=== PATIENT | male | born 1950 | race Two or more races ===

== ENCOUNTER 2019-10-18 10:35 | Outpatient (CLI) | payer OTHER | END 2019-10-18 10:40 | disposition home or self-care (01) | LOC: LAB 10:35 | DX: R97.20 Elevated prostate specific antigen [PSA] (principal) ==

== ENCOUNTER 2022-03-08 09:44 | Outpatient (CLI) | payer OTHER | END 2022-03-08 09:45 | disposition home or self-care (01) | LOC: LAB 09:44 | PROVIDERS: ATTEND Urology | DX: R97.20 Elevated prostate specific antigen [PSA] (principal) ==

== ENCOUNTER 2022-04-02 07:14 | Outpatient (CLI) | payer OTHER | END 2022-04-02 07:21 | disposition home or self-care (01) | LOC: SONOGRAMA 07:14 | PROVIDERS: ATTEND Urology | DX: R97.20 Elevated prostate specific antigen [PSA] (principal) ==

== ENCOUNTER 2022-08-30 07:30 | Outpatient (CLI) | payer OTHER | END 2022-08-30 07:42 | disposition home or self-care (01) | LOC: RAD 07:30 | PROVIDERS: ATTEND General Practice | DX: J44.9 Chronic obstructive pulmonary disease, unspecified (principal) ==

== ENCOUNTER 2022-09-17 10:00 | Inpatient (IN) | payer OTHER ==
[2022-09-17] MEDS ORDERED: COZAAR100 MG PO (11:05)
[2022-09-17] MEDS ORDERED: LIPITOR20 MG PO (11:05)
[2022-09-17] MEDS ORDERED: LIPITOR (11:06)
[2022-09-22] MEDS ORDERED: METOPROLOL SUC100 MG (13:05)
[2022-09-22] MEDS ORDERED: ATORVASTATIN CA40 MG (13:05)
[2022-09-25] MEDS ORDERED: HYOSCYAMINE0.125 M1 SL (13:48)
[2022-09-25] MEDS ORDERED: PERCOCET 5-3251 EACH PO (13:50)
== END 2022-09-25 14:57 | disposition home or self-care (01) | DRG 331 ==
LOC: O/R 09-22 06:00 → SURH 09-22 07:00 → SURG 09-22 14:59
PROVIDERS: ADMIT Surgery; ATTEND Surgery
PROC: 0DBP4ZZ Excision of Rectum, Percutaneous Endoscopic Approach (ICD-10-PCS; 2022-09-22)
PROC: 07BB4ZZ Excision of Mesenteric Lymphatic, Percutaneous Endoscopic Approach (ICD-10-PCS; 2022-09-22)
PROC: 0DTN4ZZ Resection of Sigmoid Colon, Percutaneous Endoscopic Approach (ICD-10-PCS; principal; 2022-09-22 07:00)
DX: D12.5 Benign neoplasm of sigmoid colon (principal); D12.2 Benign neoplasm of ascending colon; K57.30 Diverticulosis of large intestine without perforation or abscess without bleeding; R59.0 Localized enlarged lymph nodes; I11.9 Hypertensive heart disease without heart failure; Z20.822 Contact with and (suspected) exposure to COVID-19

== ENCOUNTER 2022-09-21 08:48 | Outpatient (CLI) | payer OTHER ==
[~2022-09-21 08:48] MED LIST: COZAAR100 MG PO; LIPITOR; LIPITOR20 MG PO
== END 2022-09-21 11:26 | disposition home or self-care (01) ==
LOC: LAB 08:48
PROVIDERS: ATTEND Surgery
DX: Z20.822 Contact with and (suspected) exposure to COVID-19 (principal)

== ENCOUNTER 2023-02-09 07:07 | Outpatient (CLI) | payer OTHER ==
[~2023-02-09 07:07] MED LIST changes: +ATORVASTATIN CA40 MG; +HYOSCYAMINE0.125 M1 SL; +METOPROLOL SUC100 MG; +PERCOCET 5-3251 EACH PO
== END 2023-02-09 07:08 | disposition home or self-care (01) ==
LOC: NUCLEAR 07:07
PROVIDERS: ATTEND General Practice
DX: C14.0 Malignant neoplasm of pharynx, unspecified (principal); C34.2 Malignant neoplasm of middle lobe, bronchus or lung
CPT/HCPCS: 78815; A9552

== ENCOUNTER 2023-06-10 06:47 | Emergency (ER) | payer OTHER ==
[~2023-06-10] VITALS: Ht 167.6 cm; Wt 68.0 kg
[2023-06-10 09:57] LABS: HEMATOCRIT 31.7 % (39.0-48.0); HEMOGLOBIN 10.8 g/dL (13-16.00); MEAN CELL VOLUME 94.9 fL (80.0-100.00); MEAN CORPUSCULAR HEMOGLOBIN 32.4 pg (27.00-32.0); MEAN CORPUSCULAR HGB CONC 34.2 g/dl (32.0-36.0); PLATELET COUNT 226 K/uL (150-450); RED BLOOD COUNT 3.34 M/uL (4.00-6.00); RED CELL DISTRIBUTION WIDTH 13.4 % (11.5-14.5)
[2023-06-10 09:59] LABS: URINE APPEARANCE Clear; URINE BILIRRUBIN Negative (NEGATIVE); URINE BLOOD Negative; URINE COLOR Yellow; URINE GLUCOSE Negative (NEGATIVE); URINE LEUKOCYTE Negative; URINE NITRATE Negative; URINE PROTEIN 30 (NEGATIVE); URINE UROBILINOGEN 0.2 E.U./dl
[2023-06-10 10:03] LABS: URINE BACTERIA 42.8 uL (0.0-1933); URINE EPITHELIAL CELLS 18.2 uL (0.0-38.8); URINE RBC 10.6 uL (0.0-20.8); URINE WBC 4.9 uL (0.0-23.2)
[2023-06-10 10:36] LABS: ALBUMIN 3.1 gm/dL (3.4-5.0); BILIRUBIN TOTAL 0.54 mg/dL (0.3-1.2); BILIRUBIN,CONJUGATED 0.19 mg/dL (0.0-0.2); BILIRUBIN,UNCONJUGATED 0.35 mg/dL (0.0-0.6); CALCIUM 8.5 mg/dL (8.5-10.1); CREATININE SERUM 3.08 mg/dL (0.70-1.30); GFR 20.05; POTASSIUM 3.88 mEq/L (3.5-5.1); TOTAL PROTEIN 7.4 gm/dL (6.4-8.2)
[2023-06-10 11:27] LABS: ABG PO2 97.7 mmHg (80-100); ABG pCO2 26.7 mmHg (35-45); BASE EXCESS -6.9 mmol/l; BICARBONATE 16.1 mmol/l (23-25); SaO2 97.4 %
[2023-06-10 11:28] LABS: allen test SATISFACTORY; o2 21 %; puncture site RADIAL RIGHT
== END 2023-06-10 12:02 | disposition home or self-care (01) ==
LOC: ER 06:47
PROVIDERS: General Practice
DX: J40 Bronchitis, not specified as acute or chronic (principal); I10 Essential (primary) hypertension; Z20.822 Contact with and (suspected) exposure to COVID-19; D02.20 Carcinoma in situ of unspecified bronchus and lung

== ENCOUNTER 2023-07-11 10:57 | Outpatient (CLI) | payer OTHER | END 2023-07-11 11:00 | disposition home or self-care (01) | LOC: SONOGRAMA 10:57 | PROVIDERS: ATTEND Pathology Anatomic Pathology & Clinical Pathology | DX: D17.0 Benign lipomatous neoplasm of skin and subcutaneous tissue of head, face and neck (principal) ==

== ENCOUNTER 2023-08-18 07:46 | Outpatient (CLI) | payer OTHER | END 2023-08-18 07:59 | disposition home or self-care (01) | LOC: NUCLEAR 07:46 | PROVIDERS: ATTEND Internal Medicine Hematology & Oncology | DX: C34.2 Malignant neoplasm of middle lobe, bronchus or lung (principal) | CPT/HCPCS: 78815; A9552 ==

== ENCOUNTER 2023-10-19 09:08 | Outpatient (CLI) | payer OTHER | END 2023-10-19 09:16 | disposition home or self-care (01) | LOC: SONOGRAMA 09:08 | PROVIDERS: ATTEND Otolaryngology | DX: D11.0 Benign neoplasm of parotid gland (principal) ==

== ENCOUNTER 2024-04-30 05:30 | Day surgery (SDC) | payer OTHER ==
[2024-04-24 10:02] VITALS: BP 116/67
[2024-04-24 10:28] LABS: HEMATOCRIT 35.4 % (39.0-48.0); HEMOGLOBIN 11.7 g/dL (13-16.00); MEAN CELL VOLUME 97.6 fL (80.0-100.00); MEAN CORPUSCULAR HEMOGLOBIN 32.2 pg (27.00-32.0); PLATELET COUNT 337 K/uL (150-450); RED BLOOD COUNT 3.63 M/uL (4.00-6.00); RED CELL DISTRIBUTION WIDTH 13.5 % (11.5-14.5)
[2024-04-24 10:29] LABS: PH,URINE 5.5 (5.0-8.0); URINE APPEARANCE Clear; URINE BILIRRUBIN Negative (NEGATIVE); URINE BLOOD Negative; URINE COLOR Yellow; URINE GLUCOSE Negative (NEGATIVE); URINE KETONE Negative (NEGATIVE); URINE LEUKOCYTE Negative; URINE NITRATE Negative; URINE PROTEIN Negative (NEGATIVE); URINE UROBILINOGEN 0.2 E.U./dl
[2024-04-24 10:32] LABS: URINE BACTERIA 15.1 uL (0.0-1933); URINE RBC 3.8 uL (0.0-20.8); URINE WBC 2.9 uL (0.0-23.2)
[2024-04-24 10:35] LABS: URINE CAST 0.45 uL (0.0-1.40)
[2024-04-24 11:16] LABS: ALBUMIN 3.5 gm/dL (3.4-5.0); BILIRUBIN TOTAL 0.58 mg/dL (0.3-1.2); CALCIUM 9.8 mg/dL (8.5-10.1); CREATININE SERUM 1.26 mg/dL (0.70-1.30); GFR 56.1; GLOBULINA 4.1 G/DL (2.4-3.5); POTASSIUM 5.76 mEq/L (3.5-5.1); TOTAL PROTEIN 7.6 gm/dL (6.4-8.2)
[2024-04-24 11:25] LABS: INR 0.96; PARTIAL THROMBOPLASTIN TIME 27.1 SECONDS (22.0-34.0); PROTHROMBIN TIME 10.5 SECONDS (9.0-11.5)
[~2024-04-30] VITALS: Ht 167.6 cm; Wt 72.6 kg
[~2024-04-30 05:30] MED LIST changes: +CALTRATE 600 +1 EAC1 PO; +[UNRECOGNIZED DRUG - OTHER] PO
[2024-04-30] MEDS ORDERED: DEXAMETHASONE SODIUM PHOSPHATE 4 MG/ML VIAL IV ONE (11:15)
[2024-04-30] MEDS ORDERED: MORPHINE SULFATE 4 MG/ML VIAL IV ONE ×2 (12:30→13:00)
== END 2024-04-30 15:00 | disposition home or self-care (01) ==
LOC: CIR.AMB 05:30
PROVIDERS: ATTEND Otolaryngology
DX: C49.9 Malignant neoplasm of connective and soft tissue, unspecified (principal); D11.7 Benign neoplasm of other major salivary glands; D23.4 Other benign neoplasm of skin of scalp and neck; D48.5 Neoplasm of uncertain behavior of skin; D17.1 Benign lipomatous neoplasm of skin and subcutaneous tissue of trunk; L72.3 Sebaceous cyst; Z88.0 Allergy status to penicillin; I10 Essential (primary) hypertension; E78.5 Hyperlipidemia, unspecified; J44.9 Chronic obstructive pulmonary disease, unspecified

== ENCOUNTER 2024-10-01 07:26 | Outpatient (CLI) | payer OTHER | END 2024-10-01 07:27 | disposition home or self-care (01) | LOC: NUCLEAR 07:26 | PROVIDERS: ATTEND Radiology Radiation Oncology | DX: C61 Malignant neoplasm of prostate (principal) | CPT/HCPCS: 78815; A9552 ==

== ENCOUNTER 2025-03-15 07:10 | Outpatient (CLI) | payer OTHER | END 2025-03-15 07:11 | disposition home or self-care (01) | LOC: NUCLEAR 07:10 | PROVIDERS: ATTEND Internal Medicine Hematology & Oncology | DX: C34.2 Malignant neoplasm of middle lobe, bronchus or lung (principal); C61 Malignant neoplasm of prostate; C77.0 Secondary and unspecified malignant neoplasm of lymph nodes of head, face and neck; C77.1 Secondary and unspecified malignant neoplasm of intrathoracic lymph nodes | CPT/HCPCS: 78815; A9552 ==

== ENCOUNTER 2025-04-18 07:06 | Outpatient (CLI) | payer OTHER | END 2025-04-18 07:10 | disposition home or self-care (01) | LOC: RAD 07:06 | PROVIDERS: ATTEND General Practice | DX: M15.9 Polyosteoarthritis, unspecified (principal); J44.9 Chronic obstructive pulmonary disease, unspecified ==

== ENCOUNTER 2025-05-01 07:40 | Outpatient (CLI) | payer OTHER | END 2025-05-01 07:46 | disposition home or self-care (01) | LOC: RAD 07:40 | PROVIDERS: ATTEND Internal Medicine Hematology & Oncology | DX: R51.9 Headache, unspecified (principal); I10 Essential (primary) hypertension; C61 Malignant neoplasm of prostate; C34.2 Malignant neoplasm of middle lobe, bronchus or lung ==

== ENCOUNTER 2025-05-08 09:57 | Emergency (ER) | payer OTHER ==
[~2025-05-08] VITALS: Ht 167.6 cm; Wt 68.0 kg
[2025-05-08 10:54] VITALS: O2SAT 98
[2025-05-08] MEDS ORDERED: DEXAMETHASONE SODIUM PHOSPHATE 4 MG/ML VIAL IV ONE (11:15)
[2025-05-08] MEDS ORDERED: 0.9 % SODIUM CHLORIDE 1,000 ML IV ONE (11:15)
[2025-05-08] MEDS ORDERED: MORPHINE SULFATE 2 MG/ML SYRINGE IV ONE ×2 (11:15→16:15)
[2025-05-08] MEDS ORDERED: DEXAMETHASONE SODIUM PHOSPHATE 4 MG/ML VIAL ONE (11:24)
[2025-05-08 12:30] LABS: BASO % 0.5 % (0.1-1.2); EOS # 0.34 (0.04-0.54); EOS % 5.8 % (0.7-7.0); LYMPH # 0.90 (1.18-3.74); LYMPH % 15.3 % (19.3-53.1); MEAN PLATELET VOLUME 8.90 fl (9.4-12.4); MONO # 0.58 (0.24-0.82); MONO % 9.9 % (4.7-12.5); NEUT # 3.99 (1.56-6.13); NEUT % 67.8 % (34.0-71.1); RED CELL DISTRIBUTION WIDTH 12.8 % (11.6-14.4)
[2025-05-08 12:35] LABS: ERYTHROCYTE SEDIMENTATION RATE 91 mm/hr (0-20)
[2025-05-08 13:00] LABS: INR 1.02
[2025-05-08 13:05] LABS: ALT/SGPT 27.0 U/L (12-78); AST/SGOT 28.0 U/L (15-37); BILIRUBIN TOTAL 0.35 mg/dL (0.3-1.2); BUN CREA RATIO 21.0 (7.0-25.0); CREATININE SERUM 1.02 mg/dL (0.70-1.30); GFR 71.39; GLOBULINA 5.1 G/DL (2.4-3.5); GLUCOSE FASTING 112.0 mg/dL (65-100); OSMOLALITY SERUM 279.0 MOSM/KG (275-295)
[2025-05-08 16:18] VITALS: BP 170/80
== END 2025-05-08 17:32 | disposition home or self-care (01) ==
LOC: ER 09:57
DX: G44.89 Other headache syndrome (principal); M26.623 Arthralgia of bilateral temporomandibular joint; Z88.0 Allergy status to penicillin; C34.91 Malignant neoplasm of unspecified part of right bronchus or lung; Z85.46 Personal history of malignant neoplasm of prostate; Z85.09 Personal history of malignant neoplasm of other digestive organs; D63.0 Anemia in neoplastic disease; E78.00 Pure hypercholesterolemia, unspecified
CPT/HCPCS: 36415; 70450; 70486; 96365; 96366; 99284; J1100; J2270; J7030

== ENCOUNTER 2025-05-11 09:14 | Emergency (ER) | payer OTHER ==
[~2025-05-11] VITALS: Ht 167.6 cm; Wt 67.1 kg
[2025-05-11] MEDS ORDERED: FAMOTIDINE/PF 20 MG/2 ML VIAL IV ONE (10:00)
[2025-05-11] MEDS ORDERED: GABAPENTIN 600 MG TABLET PO ONE (10:00)
[2025-05-11] MEDS ORDERED: 0.9 % SODIUM CHLORIDE 1,000 ML IV SCH (10:00)
[2025-05-11] MEDS ORDERED: MORPHINE SULFATE 4 MG/ML CARTRIDGE IV ONE (10:00)
[2025-05-11] MEDS ORDERED: FAMOTIDINE/PF 20 MG/2 ML VIAL ONE (10:07)
[2025-05-11] MEDS ORDERED: KETOROLAC TROMETHAMINE 30 MG VIAL IU ONE (10:30)
[2025-05-11 10:50] LABS: BASO % 0.4 % (0.1-1.2); EOS # 0.36 (0.04-0.54); EOS % 4.7 % (0.7-7.0); LYMPH # 0.93 (1.18-3.74); LYMPH % 12.0 % (19.3-53.1); MEAN PLATELET VOLUME 9.00 fl (9.4-12.4); MONO # 0.66 (0.24-0.82); MONO % 8.5 % (4.7-12.5); NEUT # 5.70 (1.56-6.13); NEUT % 73.6 % (34.0-71.1); RED CELL DISTRIBUTION WIDTH 12.6 % (11.6-14.4)
[2025-05-11 11:25] LABS: ALT/SGPT 26.0 U/L (12-78); AST/SGOT 21.0 U/L (15-37); BILIRUBIN TOTAL 0.32 mg/dL (0.3-1.2); BUN CREA RATIO 23.0 (7.0-25.0); CREATININE SERUM 1.01 mg/dL (0.70-1.30); GFR 72.21; GLOBULINA 4.8 G/DL (2.4-3.5); GLUCOSE FASTING 181.0 mg/dL (65-100); OSMOLALITY SERUM 288.0 MOSM/KG (275-295)
[2025-05-11] MEDS ORDERED: DEXAMETHASONE SODIUM PHOSPHATE 4 MG/ML VIAL IV ONE (12:15)
[2025-05-11] MEDS ORDERED: DEXAMETHASONE SODIUM PHOSPHATE 4 MG/ML VIAL ONE (12:19)
[2025-05-11] MEDS ORDERED: NEURONTIN600 M1 PO (12:20)
[2025-05-11] MEDS ORDERED: KETO10TA2 PO (12:20)
== END 2025-05-11 12:59 | disposition home or self-care (01) ==
LOC: ER 09:14
PROVIDERS: Student in an Organized Health Care Education/Training Program
DX: G50.0 Trigeminal neuralgia (principal); R51.9 Headache, unspecified; Z88.0 Allergy status to penicillin
CPT/HCPCS: 36415; 96365; 96366; 99282; J1100; J1885; J3490; J7030